=== PATIENT | male | born 1975 | race Caucasian/White ===

== ENCOUNTER 2018-06-14 12:55 | Emergency (ER) | payer OTHER ==
[~2018-06-14] VITALS: Ht 167.6 cm; Wt 94.2 kg
[~2018-06-14 12:55] MED LIST: HYDR-3498 PO; IBUP800T48 PO; PROZAC PO; QUET400T PO
[2018-06-14 12:59] VITALS: BP 139/65; PULSE 112; RESP 16; Ht 167.6 cm; Wt 94.2 kg
[2018-06-14] MEDS ORDERED: HYDROmorphONE 1 MG/ML SYG IV STA (14:24)
[2018-06-14] MEDS ORDERED: ONDANSETRON 4 MG INJ IV STA (14:24)
[2018-06-14] MEDS ORDERED: LIDOCAINE/MYLANTA 40 ML BTL PO STA (14:24)
[2018-06-14] MEDS ORDERED: FAMOTIDINE 20 MG INJ IV STA (14:24)
[2018-06-14] MEDS ORDERED: BELLADONNA/PHENOBARBITAL TAB PO STA (14:24)
--- NOTE | 2018-06-14 14:32 | ERD ---
ER Documentation Chief Complaint Chief Complaint epigastric pain x 2 weeks HPI This is a 43-year-old male complains of epigastric pain. He states the pain is gotten worse over the past 2 weeks described as a burning/sharp pain that is sometimes worse after food. Occasional radiation to the right upper quadrant no chest pain or shortness of breath. He said the past 2 weeks is getting worse. No diarrhea. No fever. No nausea vomiting, no trial of antacids yet. ROS All systems reviewed and are negative except as per history of present illness. Medications Home Meds Active Scripts Hydrocodone/Acetaminophen (Ellsworth 10-325 Tablet) 1 Each Tablet, 1 TAB PO Q6H PRN for PAIN, #7 TAB Prov:RADHA GONZALEZ DO 06/14/18 Omeprazole* (Omeprazole*) 40 Mg Capsule.dr, 40 MG PO DAILY, #14 CAP Prov:PRATIK GONZALEZSTLARISSAS Carola DO 06/14/18 Discontinued Reported Medications [Prozac] No Conflict Check, 60 PO DAILY 11/13/10 Quetiapine Fumarate* (Seroquel*) 400 Mg Tablet, 400 MG PO BID 11/13/10 Discontinued Scripts Hydrocodone Bit-Acetaminophen* (Ellsworth*) 5-325 Mg Tab, 1 TAB PO Q6 PRN for SEVERE PAIN LEVEL 7-10, #7 TAB Prov:GLORIA GIORDANO. IRON CASTER 06/10/15 Ibuprofen* (Motrin*) 800 Mg Tab, 800 MG PO Q6, #30 TAB Prov:GLORIA GIORDANO. IRON CASTER 06/10/15 Allergies Allergies: Coded Allergies: Penicillins (Verified Allergy, Unknown, 06/14/18) PMhx/Soc History of Surgery: Yes (CIRCUMCISSION AT 11 YRS OLD) Anesthesia Reaction: No Hx Neurological Disorder: No Hx Respiratory Disorders: No Hx Cardiac Disorders: No Hx Psychiatric Problems: No Hx Miscellaneous Medical Probl: No Hx Alcohol Use: No Hx Substance Use: Yes (14 YRS AGO) Hx Tobacco Use: Yes Smoking Status: Former smoker FmHx Family History: No coronary disease Physical Exam Vitals Vital Signs Date Temp Pulse Resp B/P (MAP) Pulse Ox O2 O2 Flow FiO2 Time Delivery Rate 06/14/18 98.2 112 16 139/65 95 12:59 (89) Physical Exam Const: Well-developed, well-nourished Head: Atraumatic, normocephalic Eyes: Normal Conjunctiva, PERRLA, EOMI, normal sclera, no nystagmus ENT: Normal External Ears, Nose and Mouth, moist mucus membranes. Neck: Full range of motion. No meningismus, no lymphadenopathy. Resp: Clear to auscultation bilaterally, no wheezing, rhonchi, rales Cardio: Regular rate and rhythm, no murmurs, S1 S2 present Abd: Soft, slight very mild epigastric tenderness, non distended. Normal bowel sounds, no guarding or rebound, no pulsitile abdominal masses or bruits Skin: No petechiae or rashes, no ecchymosis , no maculopapular rash Back: No midline or flank tenderness Ext: No cyanosis, or edema, FROM x 4, normal inspection, neurovascularly intact x 4 Neur: Awake and alert, STR 5/5 x 4, sensation intact x 4, no focal findings, cerebellum intact Psych: Normal Mood and Affect Result Diagram: 06/14/18 1439 06/14/18 1439 Results 24 hrs Laboratory Tests Test 06/14/18 14:39 White Blood Count 9.0 10^3/ul Red Blood Count 4.77 10^6/ul Hemoglobin 15.1 g/dl Hematocrit 43.7 % Mean Corpuscular Volume 91.6 fl Mean Corpuscular Hemoglobin 31.7 pg Mean Corpuscular Hemoglobin Concent 34.6 g/dl Red Cell Distribution Width 11.9 % Platelet Count 257 10^3/UL Mean Platelet Volume 10.4 fl Immature Granulocytes % 0.600 % Neutrophils % 65.8 % Lymphocytes % 23.2 % Monocytes % 7.1 % Eosinophils % 2.6 % Basophils % 0.7 % Nucleated Red Blood Cells % 0.0 /100WBC Immature Granulocytes # 0.050 10^3/ul Neutrophils # 5.9 10^3/ul Lymphocytes # 2.1 10^3/ul Monocytes # 0.6 10^3/ul Eosinophils # 0.2 10^3/ul Basophils # 0.1 10^3/ul Nucleated Red Blood Cells # 0.0 10^3/ul Sodium Level 141 mmol/L Potassium Level 4.1 mmol/L Chloride Level 102 mmol/L Carbon Dioxide Level 27 mmol/L Anion Gap 12 Blood Urea Nitrogen 15 mg/dl Creatinine 1.01 mg/dl Est Glomerular Filtrat Rate mL/min > 60 mL/min Glucose Level 203 mg/dl Calcium Level 9.6 mg/dl Total Bilirubin 0.5 mg/dl Direct Bilirubin 0.00 mg/dl Indirect Bilirubin 0.5 mg/dl Aspartate Amino Transf (AST/SGOT) 20 IU/L Alanine Aminotransferase (ALT/SGPT) 29 IU/L Alkaline Phosphatase 120 IU/L Total Protein 7.8 g/dl Albumin 4.4 g/dl Globulin 3.40 g/dl Albumin/Globulin Ratio 1.29 Lipase 38 U/L Current Medications Medications Dose Sig/Ceci Start Time Status Last (Trade) Ordered Route PRN Stop Time Admin Dose Reason Admin 1 mg ONCE STAT 06/14/18 DC 06/14/18 Hydromorphone IV 14:24 06/14/18 14:53 HCl 14:26 (Dilaudid) Ondansetron 4 mg ONCE STAT 06/14/18 DC 06/14/18 HCl (Zofran IV 14:24 06/14/18 14:54 Inj) 14:26 Famotidine 20 mg ONCE STAT 06/14/18 DC 06/14/18 (Pepcid Iv) IV 14:24 06/14/18 14:53 14:26 40 ml ONCE STAT 06/14/18 DC 06/14/18 Miscellaneous PO 14:24 06/14/18 14:54 Medication 14:26 (Gi Cocktail (2)) Belladonna/ 2 tab ONCE STAT 06/14/18 DC 06/14/18 Phenobarbital PO 14:24 06/14/18 14:54 () 14:26 Procedures/MDM Ordering MD: RADHA GONZALEZ DO Location: E/R Room/Bed: PROCEDURE: US Abdomen Right Upper Quadrant. CLINICAL INDICATION: Abdominal pain TECHNIQUE: Multiple real-time longitudinal and transverse images were acquired of the patient's right upper quadrant abdomen utilizing a curved array transducer. COMPARISON: None FINDINGS: Liver: The liver is normal in size with the sagittal diameter of the right lobe measuring 15.2 cm. The hepatic echotexture is increased diffusely. No focal lesion is evident.. There is normal directional flow of the main portal vein. Gallbladder: Appears unremarkable and no stones are identified. There is no pericholecystic fluid. Bile ducts: There is no significant intra or extrahepatic bile duct dilatation. The common bile duct measures 5.2 mm in cross diameter. No choledocholiths are seen within the visualized portions of the duct. Pancreas: The visualized head and body of the pancreas appear unremarkable wall the tail is obscured. Right kidney: Normal in echotexture and in size. The right kidney measures 12.2 cm. in length. No mass, pathological calcification, or hydronephrosis is evident. Peritoneum: There is no free intraperitoneal fluid IMPRESSION: 1. Normal appearing gallbladder without cholelithiasis or bile duct dilatation. 2. The visualized head and body of the pancreas appear unremarkable wall the tail is obscured by bowel. 3. Normal sized diffusely echogenic liver which likely signifies diffuse fatty infiltration. No focal lesion is evident and there is normal directional flow of the main portal vein. 4. Normal appearing right kidney. 5. No free intraperitoneal fluid is evident. Physician Arcadio Date Time Electronically viewed and signed by Andreas Price Physician on 06/14/2018 15:25 RH/ CC: RADHA GONZALEZ DO [id number] Patient says his pain was resolved after the GI cocktail. The patient states that he eats a lot of fatty greasy food and lots of spicy food and a lot of coffee. Told the patient to change his diet reviewed dietary care for gastritis. Will discharge home with omeprazole and with Ellsworth Departure Diagnosis: Primary Impression: Gastritis Gastritis type: unspecified gastritis Chronicity: unspecified Gastritis bleeding: presence of bleeding unspecified Qualified Codes: K29.70 - Gastritis, unspecified, without bleeding Condition: Stable RADHA GONZALEZ DO Jun 14, 2018 14:32
[2018-06-14] MEDS ORDERED: OMEP40CA6 PO (16:03)
[2018-06-14] MEDS ORDERED: HYDR-3980 PO (16:03)
== END 2018-06-14 16:27 | disposition home or self-care (01) ==
LOC: E/R 12:55
DX: K29.70 Gastritis, unspecified, without bleeding (principal); Z87.891 Personal history of nicotine dependence
CPT/HCPCS: 36415; 76705; 80053; 83690; 85025; 96374; 96375; J1170; J2405; Z7502; Z7610